=== PATIENT | female | born 1990 | race Caucasian/White ===

== ENCOUNTER 2020-03-12 14:38 | Day surgery (SDCO) | payer OTHER ==
[2020-03-12 15:48] LABS: BILIRUBIN NEGATIVE (NEGATIVE); BLOOD NEGATIVE Ery/uL (NEGATIVE); CLARITY CLEAR (CLEAR); COLOR YELLOW (YELLOW); GLUCOSE (U) NORMAL (NORMAL); LEUKOCYTES TRACE Leu/uL (NEGATIVE); NITRITE NEGATIVE (NEGATIVE); PROTEIN NEGATIVE (NEGATIVE); UROBILINOGEN 0.2 mg/dL (0.2-1.0); pH 7.5 (5.0-9.0)
[2020-03-12 15:54] LABS: AMPHETAMINES POSITIVE (NEGATIVE); BARBITURATES NEGATIVE (NEGATIVE); ECSTASY (MDMA) NEGATIVE (NEGATIVE); MARIJUANA (THC) NEGATIVE (NEGATIVE); METHADONE NEGATIVE (NEGATIVE); OPIATES NEGATIVE (NEGATIVE); OXYCODONE NEGATIVE (NEGATIVE)
[2020-03-12 15:57] LABS: BACTERIA TRACE; SQUAMOUS EPITHELIAL CELLS >50
[2020-03-12 15:58] LABS: MUCOUS TRACE
[2020-03-12 16:29] LABS: HCT 26.8 % (37.0-47.0); HGB 8.8 g/dl (12.5-16.0); MCH 25.8 pg (25.0-31.0); MCHC 32.8 g/dL (32.0-36.0); MCV 78.6 fL (78.0-100.0); MPV 10.1 fL (6.0-9.5); RBC 3.41 M/uL (4.20-5.40); RDW 13.2 % (11.5-14.0)
[2020-03-12 19:05] LABS: ALBUMIN 2.4 g/dL (3.4-5.0); BILIRUBIN - TOTAL 0.5 mg/dL (0.2-1.0); CREATININE 0.58 mg/dL (0.51-0.95); GLOBULIN (CALCULATION) 4.1 g/dL; POTASSIUM 4.2 mmol/L (3.5-5.1); TOTAL PROTEIN 6.5 g/dL (6.4-8.2)
[2020-03-15 22:05] LABS: HCV LOG10 6.375 (.); HEPATITIS C QUANTITATION 2370000 IU/mL (.)
== END 2020-03-13 13:59 | disposition other institution (70) ==
LOC: FOD 14:38 → FOB 14:39 → FOD 17:10 → FOB 17:11
PROVIDERS: ADMIT Obstetrics & Gynecology
DX: O41.8X90 Other specified disorders of amniotic fluid and membranes, unspecified trimester, not applicable or unspecified (principal); O99.019 Anemia complicating pregnancy, unspecified trimester; O99.343 Other mental disorders complicating pregnancy, third trimester; F41.9 Anxiety disorder, unspecified; O99.333 Smoking (tobacco) complicating pregnancy, third trimester; O26.893 Other specified pregnancy related conditions, third trimester; J30.9 Allergic rhinitis, unspecified; Z3A.36 36 weeks gestation of pregnancy; Z88.0 Allergy status to penicillin; Z83.3 Family history of diabetes mellitus; Z80.0 Family history of malignant neoplasm of digestive organs; Z20.822 Contact with and (suspected) exposure to COVID-19; Z82.61 Family history of arthritis
CPT/HCPCS: 36415; 80053; 80305; 81001; 84112; 87522; G0378; J0702; J2916; J7120; U0002